=== PATIENT | male | born 1970 | race Caucasian/White ===

== ENCOUNTER 2022-01-23 02:59 | Emergency (ER) | payer MEDICAID ==
[~2022-01-23 02:59] MED LIST: IBU600 MG PO
== END 2022-01-23 06:42 | disposition home or self-care (01) ==
LOC: ER1 02:59
DX: M25.511 Pain in right shoulder (principal); G89.29 Other chronic pain; R20.2 Paresthesia of skin; Z90.49 Acquired absence of other specified parts of digestive tract; F17.200 Nicotine dependence, unspecified, uncomplicated
CPT/HCPCS: 73030; 99283

== ENCOUNTER → 2022-02-19 | Outpatient (CLI) | payer OTHER | LOC: EMI 07:58 | DX: M50.123 Cervical disc disorder at C6-C7 level with radiculopathy (principal); M48.02 Spinal stenosis, cervical region | CPT/HCPCS: 72141 ==